=== PATIENT | male | born 1950 | race Caucasian/White ===

== ENCOUNTER → 2018-06-16 | Outpatient (CLI) | payer MEDICARE ==
[2017-01-21 11:01] VITALS: BMI 31.4
[~2018-06-16] MED LIST: ALBU8.5H IH; IPRA3AMP10 IH; PRED20TA6 PO
[2018-06-16 11:11] LABS: PLATELET COUNT, AUTOMATED 209 K/uL (150-450)
== END ==
LOC: LAB 10:47
PROVIDERS: ATTEND Internal Medicine
DX: R09.02 Hypoxemia (principal); J40 Bronchitis, not specified as acute or chronic; R06.00 Dyspnea, unspecified
CPT/HCPCS: 36415; 82040; 82150; 82247; 82310; 82374; 82435; 82565; 82947; 83690; 83880; 84075; 84132; 84155; 84295; 84443; 84450; 84460; 84520; 85025

== ENCOUNTER → 2018-06-30 | Outpatient (CLI) | payer MEDICARE ==
[2017-01-21 11:01] VITALS: BMI 31.4
== END ==
LOC: RESP 03:09
PROVIDERS: ATTEND Internal Medicine
DX: J98.4 Other disorders of lung (principal)
CPT/HCPCS: 94060; 94726; 94729

== ENCOUNTER → 2018-07-27 | Outpatient (CLI) | payer MEDICARE ==
[2017-01-21 11:01] VITALS: BMI 31.4
[~2018-07-27] MED LIST changes: +LISI-362 PO; +PNEU0.5D3 IM
== END ==
LOC: RESP 01:04
PROVIDERS: ATTEND Internal Medicine
DX: G47.33 Obstructive sleep apnea (adult) (pediatric) (principal)